=== PATIENT | male | born 1945 | race Caucasian/White ===

== ENCOUNTER 2017-05-29 15:57 | Emergency (ER) | payer OTHER ==
[2017-05-29 16:15] VITALS: BP 141/81; PULSE 54; RESP 16; TEMP 98.6; O2SAT 96
[2017-05-29] MEDS ORDERED: KETOROLAC 30 MG/1 ML SDV IM ONE (16:20)
[2017-05-29] MEDS ORDERED: DEXAMETHASONE 4 MG/ML VIAL PO ONE (16:20)
--- NOTE | 2017-05-29 16:26 | EDPHY ---
H & P Time Seen by Provider: 05/29/17 16:06 HPI/ROS: HPI Sore throat. 72-year-old male by private vehicle. He complains of a sore throat for the last 2-3 days. Worse today. Describes it as like having glass in his throat. Sharp, with swallowing. He is able to swallow liquids however without difficulty. No fever. Denies any voice changes. No stridor difficulty breathing. He has had an associated dry cough with nasal congestion as well. ROS: Constitutional: No fever, no chills. No weakness. Eyes: No discharge. No changes in vision. ENT: As above. Respiratory: As above. No shortness of breath. Cardiac: No chest pain, no palpitations. Gastrointestinal: No abdominal pain, no vomiting, no diarrhea. Musculoskeletal: No back pain. No neck pain. No myalgias or arthralgias. Skin: No rashes. Neurological: No headache. No focal weakness or altered sensation. Past medical history: Psychiatric. Social history: Nonsmoker. Here by himself. Denies alcohol. Physical Exam: General Appearance: Alert, no distress. This patient is responding to questions appropriately and in full sentences. This patient appears well- hydrated and well-nourished. Eyes: Pupils equal and round no pallor or injection. No lid edema, erythema or injection. ENT, Mouth: Mucous membranes are moist. The pharyngeal tissues are unremarkable except for some mild diffuse erythema. No edema or swelling. No asymmetry suggestive of abscess. No exudates. No stridor on auscultation of his neck. No voice changes. No cervical or submandibular lymphadenopathy. Respiratory: There are no retractions, lungs are clear to auscultation with good air movement bilaterally. Cardiovascular: Regular rate and rhythm. No murmur. Neurological: Motor sensory function is grossly intact. Cranial nerves are normal. Gait is normal. Skin: Warm and dry, no rashes. Musculoskeletal: Neck is supple and nontender. No pain on flexion of his neck. Extremities are symmetrical. All joints range without pain or impingement. Psychiatric: No agitation. No depression. Database: Rapid strep-negative. EKG: Imaging: Procedures: Emergency department course: Vital signs reviewed and are unremarkable. He is afebrile. He has no contraindications to NSAIDs. No history of renal dysfunction. I reviewed his laboratory work from the past and he has normal creatinines. He has no history of peptic ulcer disease. He was given intramuscular Toradol and oral Decadron for anti-inflammatory effects and pain control. Rapid strep swab sent. 4:35 p.m., patient re-evaluated. Resting comfortably at this time. Results of rapid strep discussed with him. He feels comfortable going home and I feel he is safe for discharge. He states he is feeling better after above medications. Plan will be to start him on high-dose ibuprofen for 2 days tomorrow morning. I will also prescribe him a short course of Vicodin to be taken as needed for throat pain. He is to follow up with his primary care physician in 1-2 days for re-evaluation. Return to emergency department precautions were thoroughly reviewed with him. All of his questions were answered. He was discharged in good condition. Differential Diagnosis: The differential diagnosis on this patient includes but is not limited to viral pharyngitis, upper respiratory infection. Streptococcal pharyngitis, peritonsillar abscess, retropharyngeal abscess, tracheitis, epiglottitis unlikely. This represents a partial list of diagnoses considered. These considerations are based on history, physical exam, past history, reassessment and diagnostic testing. Smoking Status: Never smoked Constitutional: Initial Vital Signs Temperature (C) 37.0 C 05/29/17 16:13 Heart Rate 54 L 05/29/17 16:13 Respiratory Rate 16 05/29/17 16:13 Blood Pressure 141/81 H 05/29/17 16:13 O2 Sat (%) 96 05/29/17 16:13 O2 Delivery Mode Room Air Allergies/Adverse Reactions: No Known Allergies Allergy (Unverified 07/27/11 09:08) Home Medications: Medication Instructions Recorded busPIRone 05/29/17 traZODone 05/29/17 Medical Decision Making - Data Points Laboratory Results: 05/29/17 05/29/17 Unknown 16:15 Group A Strep Screen NEGATIVE (NEGATIVE) Group A Strep DNA Pending Medications Given: Discontinued Medications Dexamethasone (Decadron Injection) 12 mg PO EDNOW ONE Stop: 05/29/17 16:21 Last Admin: 05/29/17 16:28 Dose: 12 mg Ketorolac Tromethamine (Toradol) 60 mg IM EDNOW ONE Stop: 05/29/17 16:21 Last Admin: 05/29/17 16:28 Dose: 60 mg Departure - Departure Disposition: Home, Routine, Self-Care Clinical Impression: Pharyngitis, Upper respiratory infection Condition: Good Instructions: Pharyngitis (ED), Upper Respiratory Infection (ED) Additional Instructions: Read and follow provided instructions. Follow-up with your primary care physician in 1-2 days for re-evaluation. Ibuprofen dosin mg every 6 hours with meals for the next 2-3 days only. Take only as needed for pain. You can start taking this medication tomorrow morning. Latonia/Percocet dosin-2 every 4-6 hours for [address] not drive on this medication. Take only as needed for pain and to help you sleep for the next 2- 3 days. Keep well hydrated, drink lots of fluids, get lots of rest. Return to the emergency department for worsening sore throat, high fever, difficulty swallowing, difficulty breathing, voice changes, stridor or other serious concerns.
[2017-05-29] MEDS ORDERED: HYDROCOD/APAP 5/325 PREPACK#6 BTL TAKEHOME ONE (16:29)
== END 2017-05-29 16:38 | disposition home or self-care (01) ==
LOC: CED 15:57
DX: J02.9 Acute pharyngitis, unspecified (principal); J06.9 Acute upper respiratory infection, unspecified
CPT/HCPCS: 96372; 99284; J1100; J1885; 87880-PO

== ENCOUNTER 2018-12-05 14:16 | Inpatient (IN) | payer OTHER ==
--- NOTE | 2018-12-05 14:53 | EDPHY ---
H & P Time Seen by Provider: 12/05/18 14:51 HPI/ROS: Chief complaint. Postop infection HPI. Patient is a 73-year-old male presents emergency department with redness pain and drainage from his left foot. Patient had bunion surgery November 14. His wound dehisced. 1 week ago it became red and swollen. He was started on Augmentin 5 days ago and has been compliant with his medication. Despite antibiotics it has gotten worse with increased redness swelling and some bleeding. He denies fever. Apparently sometime after his surgery the incision dehisced. Patient has no other complaints. Patient was sent to the emergency department by his orthopedist for worsening foot infection ROS 10 systems were reviewed and negative with the exception of the elements mentioned in the history of present illness Past Medical/Surgical History: Depression, knee replacement, hip replacement, bunionectomy Social History: , nonsmoker, no alcohol Smoking Status: Never smoked Physical Exam: General Appearance: Alert well-developed male mild distress vital signs are stable Eyes: Pupils equal and round no pallor or injection. ENT, Mouth: Mucous membranes are moist. Respiratory: There are no retractions, lungs are clear to auscultation. Cardiovascular: Regular rate and rhythm. Gastrointestinal: Abdomen is soft and nontender, no masses, bowel sounds normal. Neurological: Awake and alert, sensory and motor exams grossly normal. Skin: Warm and dry, no rashes. Musculoskeletal: Neck is supple nontender. Extremities symmetrical, full range of motion. Left foot has a 10 cm open wound along the medial aspect of the great toe and foot. Surrounding erythema and swelling. Foul smelling. Yellowish drainage present. No lymphangitis. Wound does not appear to go down to the bone. Psychiatric: Patient is oriented X 3, there is no agitation. Constitutional: Initial Vital Signs Temperature (C) 36.7 C 12/05/18 14:31 Heart Rate 70 12/05/18 14:31 Respiratory Rate 16 12/05/18 14:31 Blood Pressure 122/69 H 12/05/18 14:31 O2 Sat (%) 95 12/05/18 14:31 O2 Delivery Mode Room Air Allergies/Adverse Reactions: No Known Allergies Allergy (Verified 12/05/18 14:35) Home Medications: Medication Instructions Recorded traZODone [traZODONE 50MG (*)] 50 mg PO HS 05/29/17 FLUoxetine [Prozac 20 MG (*)] 20 mg PO DAILY 12/05/18 Medical Decision Making - Diagnostics Imaging Results: Foot x-ray interpreted by me shows hardware appears to be intact. No obvious evidence of osteomyelitis Procedures: IV normal saline. Vancomycin IV after wound culture ED Course/Re-evaluation: I consulted discussed the case with Dr. Potts who notes that the patient has been on Augmentin. He has concern for worsening infection despite oral antibiotics Re-evaluation 3:45 p.m.. Patient and I discussed laboratory evaluation, treatment plan including recommendation for admission. He expresses understanding and agreement I consulted discussed case with Dr. Nagy, hospitalist, who agrees to the admission Differential Diagnosis: Failed outpatient therapy of 5 days of Augmentin with worsening foot infection postoperatively. Currently no evidence for osteomyelitis - Data Points Laboratory Results: Laboratory Results 12/05/18 15:08 12/05/18 15:08 12/05/18 12/05/18 15:08 15:08 WBC 7.95 10^3/uL 10^3/uL (3.80-9.50) RBC 4.59 10^6/uL 10^6/uL (4.40-6.38) Hgb 13.7 g/dL g/dL (13.7-17.5) Hct 40.3 % % (40.0-51.0) MCV 87.8 fL fL (81.5-99.8) MCH 29.8 pg pg (27.9-34.1) MCHC 34.0 g/dL g/dL (32.4-36.7) RDW 13.8 % % (11.5-15.2) Plt Count 369 10^3/uL 10^3/uL (150-400) MPV 9.6 fL fL (8.7-11.7) Neut % (Auto) 62.3 % % (39.3-74.2) Lymph % (Auto) 26.4 % % (15.0-45.0) Canadian % (Auto) 8.9 % % (4.5-13.0) Eos % (Auto) 1.5 % % (0.6-7.6) Baso % (Auto) 0.8 % % (0.3-1.7) Nucleat RBC Rel Count 0.0 % % (0.0-0.2) Absolute Neuts (auto) 4.95 10^3/uL 10^3/uL (1.70-6.50) Absolute Lymphs (auto) 2.10 10^3/uL 10^3/uL (1.00-3.00) Absolute Monos (auto) 0.71 10^3/uL 10^3/uL (0.30-0.80) Absolute Eos (auto) 0.12 10^3/uL 10^3/uL (0.03-0.40) Absolute Basos (auto) 0.06 10^3/uL 10^3/uL (0.02-0.10) Absolute Nucleated RBC 0.00 10^3/uL 10^3/uL (0-0.01) Immature Gran % 0.1 % % (0.0-1.1) Immature Gran # 0.01 10^3/uL 10^3/uL (0.00-0.10) Sodium 135 mEq/L mEq/L (135-145) Potassium 4.0 mEq/L mEq/L (3.5-5.2) Chloride 103 mEq/L mEq/L (97-110) Carbon Dioxide 24 mEq/l mEq/l (22-31) Anion Gap 8 mEq/L mEq/L (6-14) BUN 28 mg/dL H mg/dL (7-23) Creatinine 0.9 mg/dL mg/dL (0.7-1.3) Estimated GFR > 60 Glucose 86 mg/dL mg/dL (70-100) Calcium 9.4 mg/dL mg/dL (8.5-10.4) Medications Given: Discontinued Medications Vancomycin/Sodium Chloride (Vancomycin 1 Gm (Premix)) 250 mls @ 250 mls/hr IV EDNOW ONE PRN Reason: Protocol Stop: 12/05/18 16:03 Last Admin: 12/05/18 15:29 Dose: 250 mls Departure - Departure Disposition: [facility] Inpatient Acute Clinical Impression: Cellulitis Qualifiers: Site of cellulitis: extremity Site of cellulitis of extremity: lower extremity Laterality: right Qualified Code(s): L03.115 - Cellulitis of right lower limb Condition: Fair
[2018-12-05] MEDS ORDERED: VANCOMYCIN HCL/NORMAL SALINE 250 ML IV ONE (15:04)
[2018-12-05 15:27] LABS: PLATELET COUNT 369 10^3/uL (150-400)
[2018-12-05] MEDS ORDERED: ONDANSETRON DISINTEGRATING 4 MG TAB PO PRN (16:26)
[2018-12-05] MEDS ORDERED: oxyCODONE IR 5 MG TAB PO PRN (16:26)
[2018-12-05] MEDS ORDERED: ACETAMINOPHEN 325 MG TAB PO PRN (16:26)
[2018-12-05] MEDS ORDERED: ONDANSETRON 4 MG/2 ML VIAL IVP PRN (16:26)
[2018-12-05] MEDS ORDERED: NS 1,000 ML IV SCH (16:30)
--- NOTE | 2018-12-05 17:04 | GHP ---
[f rep st] HISTORY AND PHYSICAL DATE OF ADMISSION: 12/05/2018 HISTORY OF PRESENT ILLNESS: The patient is a 73-year-old gentleman who has good medical health. He had a bunionectomy performed on his left foot on November 12. He tells me is a wearing a shoe . About a week ago, he saw his delivery table operator on because of redness and swelling and drainage and he was prescribed Augmentin which he took. He returns today for followup with what appeared to be a worsen ing wound and is referred here for further management. He has not had fever, chills, lymphangitic st reaking. Does not have diabetes. Does not use injection drugs. It sounds like he has been able to bear weight on this. He has not felt unwell. Notably, he does have hip and knee arthroplasties on b oth sides without pain or swelling in those areas. REVIEW OF SYSTEMS: Complete 10-point review of systems conducted. Negative except as noted in the H PI. PAST MEDICAL HISTORY: Osteoarthritis with hip and knee arthroplasties, depression, insomnia. ALLERGIES: No known drug allergies. MEDICATIONS: Home medications are trazodone and fluoxetine. SOCIAL HISTORY: No tobacco. Does drink alcohol. 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 Originall y from [place]. Lives in [place]. FAMILY HISTORY: Sister of lung cancer. She was a smoker. Mother of breast cancer. PHYSICAL EXAMINATION: VITAL SIGNS: Temp 36.7, blood pressure 122/70, pulse 70, breathing 16 times a minute, 95% on room. GENERAL: In no acute distress. HEENT: Sclerae anicteric. Oropharynx clear. Mucous membranes moist. NECK: Supple. No lymphadenopathy or JVD. LUNGS: Clear to auscultation bilaterally. HEART: S1, S2. ABDOMEN: Soft, nontender, nondistended. EXTREMITIES: The lower extr emities are without edema. On the left leg, there is a bunion scar that is on the medial aspect of h is foot that is about 4 inches long. It is approximated closed, but there is purulence and erythema. It is warm. There is no lymphangitic streaking. There is trace edema in his medley. SKIN: Otherwi se without rash. NEUROLOGIC: Exam is nonfocal. LABORATORY DATA: Sodium 135, potassium 4.0, chloride 103, bicarb 24, BUN 28, creatinine 0.9, glucose 86. White count 8, hematocrit 40, platelets 369,00. Film interpreted by me shows evidence of a bun ion surgery with fractures and hardware. It is difficult to ascertain if there is a periosteum react ion. There does not appear to be 1. Does not appear to be gas in the soft tissues. I await the rad iologist's read. I discussed the case with Dr. Lux Childs and Dr. Kasia Montano. ASSESSMENT AND PLAN: A 73-year-old gentleman postoperative wound infection. 1. Postoperative wound infection. This is certainly present. Will start vancomycin. It is not mone ar that he needs gram-negative coverage in the absence of diabetes. Glucose 86. No history of diabe javier. I have drawn blood cultures. 2. History of hip and knee arthroplasties. 3. Infection. Soft tissue infection in these patients is always concerning. I do not believe the p atient is bacteremic at this point. We will follow. As I have said, blood cultures have been drawn. 4. Depression. Continue fluoxetine. 5. Prophylaxis: Start low-molecular weight heparin. DISPOSITION: Inpatient status. /[id number]/MODL
--- NOTE | 2018-12-05 18:24 | GCON ---
[f rep st] CONSULTATION INFECTIOUS DISEASE CONSULTATION DATE OF CONSULTATION: 12/05/2018 REFERRING PHYSICIAN: Getachew Nagy MD REASON FOR CONSULTATION: Postoperative infection of left foot. HISTORY OF PRESENT ILLNESS: A 73-year-old male with minimal medical problems other than osteoarthritis of multiple joints, most recently underwent left knee replacement April 06, 2018, who underwent surgery of his left foot on November 13. Patient did well postoperatively until approximately 1 week ago, when he presented to his chief design engineer complaining of increasing drainage from his wound. Stitches were removed and his wound dehisced. Patient was prescribed empiric Augmentin, which he has been on the last 5 days. He called back today because he had increasing redness compared to last week and was concerned. He was seen by chief design engineer, who recommended ER evaluation. In the ER, patient was noted to have an erythematous swollen left foot that was foul-smelling. X-ray was performed which showed a fracture of the 1st metatarsal proximal to the osteotomy site. No gas in the soft tissues but some soft tissue swelling. No obvious bony changes consistent with osteomyelitis. Labs were unremarkable with a normal white count and patient was afebrile. Patient states compliance with Augmentin and states that he has followed postoperative instructions following his bunionectomy, although admits that he may be a bit more active than he is allowed. He denies any trauma or submerging his foot in water. He denies any history of MRSA and other than Augmentin as mentioned above, has not recently been on antibiotics. Further, he denies ever having skin infection in the past. Travel to [place] prior to operation in September 2018. REVIEW OF SYSTEMS: A complete 10-point review of systems was performed and is negative except as mentioned in the HPI. Pertinent negatives include no fevers , chills, night sweats, changes in appetite. PAST MEDICAL AND SURGICAL HISTORY: Includes BPH, genital herpes, gout, hyperlipidemia, osteoarthritis, and Paget's disease of the bone. Surgeries include appendectomy, bilateral hip replacements and knee replacements, rotator cuff surgery. ALLERGIES: NKDA. MEDICATIONS: Prozac 20 mg daily, and he was on Augmentin 875 mg twice daily, and trazodone 50 mg p.o. at bedtime. He was given 1 dose of vancomycin in the emergency room. SOCIAL HISTORY: Alcohol daily. Remote tobacco. 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 He is . FAMILY HISTORY: Positive for breast cancer, lung cancer, CHF, coronary artery disease, and hypertension. PHYSICAL EXAM: VITAL SIGNS: Blood pressure 125/78, heart rate 53, respiratory rate 16, saturation 96% on room air. GENERAL: This is a pleasant, nontoxic male sitting up in bed. No acute distress with fluent speech. HEENT: Pupils are reactive bilaterally. No conjunctival abnormalities. Mouth: Moist mucous membranes. Excellent dentition. CARDIOVASCULAR: Regular rate. No murmurs. CHEST: Clear to auscultation bilaterally. He was breathing easy. ABDOMEN: Soft, nontender. Bowel sounds were present. NEUROLOGICAL: He was alert and oriented x4. Moving all 4 extremities equally. Cranial nerves were grossly intact. SKIN: No rashes other than what we described on extremity exam. EXTREMITIES: He has 2+ pulses bilaterally. His left foot has a 10 cm scar along the medial aspect of his foot that has dehisced with a small amount of drainage, surrounding erythema, and warmth. He has about 2+ edema on the left foot. No fluctuance or crepitus was noted. No erythema tracking up the leg or medial thigh. PSYCHIATRIC: Alert and oriented x4, cooperative. LABORATORY: INR 1. Creatinine 0.9. White count 7.9, hematocrit 40, platelets of 369, 62% neutrophils, 26% lymphocytes. IMAGING: As per HPI. ASSESSMENT: Cellulitis of the left lower extremity status post bunionectomy with wound dehiscence. Imaging shows a fracture in an unexpected location, although patient reports that he had a newer bunion procedure per his surgeon's report, so not clear whether this fracture may be related to surgery. Interestingly, patient has minimal pain, normal white count, and no systemic symptoms. Minimal purulence from the wound. Expected pathogens postoperatively include staph and strep, but with foot infections can sometimes expect gram-negative rods. PLAN: 1. Due to lack of purulence and no history of MRSA as well as lack of antibiotic exposure, I think it is reasonable to treat for staph and strep with Ancef. 2. Follow wound culture. 3. Follow blood cultures, although doubt these will be positive as no systemic signs of infection. 4. Try to assess what the fracture is related to seen on plain films. At this time, reviewed with radiology. Do not think that MRI will help in sorting out process at this point, but we will continue to assess on a daily basis as patient still could be at risk for deeper-seated infection such as abscess or osteomyelitis. 5. Risks and benefits of antibiotic therapy were discussed with the patient at the bedside. Duration and modality of antibiotics yet to be determined based on clinical course. Greater than 50 minutes spent on this patients care, greater than 50% of time spent counseling, educating, and coordinating care regarding the above mentioned plan. Thank you for this consultation. We will continue the see the patient on a daily basis. /[id number]/MODL MTDD
--- NOTE | 2018-12-05 19:19 | PDMN ---
Medical Necessity Medical necessity: Pt meets IP criteria per & [facility] Wound & Skin Management; est los > 2mn for eval/tx of worsening post op foot infection w/ failed outpatient abx; admit for further monitoring, ID/Wound Care consults & IV abx; per H&P & order 12/05/18
[2018-12-05] MEDS: traZODone 50 MG TAB PO SCH (21:53)
[2018-12-05] MEDS: ceFAZolin 2 GM/DEXTROSE 100 ML IV SCH (21:54)
[2018-12-06] MEDS ORDERED: VANCOMYCIN HCL/NORMAL SALINE 250 ML IV SCH (03:00)
[2018-12-06] MEDS: ceFAZolin 2 GM/DEXTROSE 100 ML IV SCH ×3 (05:07→22:48)
[2018-12-06 05:18] LABS: PLATELET COUNT 310 10^3/uL (150-400)
[2018-12-06] MEDS: ENOXAPARIN 40 MG/0.4 ML SYR SC SCH (08:37)
[2018-12-06] MEDS: FLUoxetine 20 MG CAP PO SCH (08:38)
--- NOTE | 2018-12-06 11:29 | PCMIDPN ---
Assessment/Plan: Assessment: 73-year-old man with postsurgical infection of the left medial foot. No systemic signs or symptoms of uncontrolled infection but there are local signs of inflammation. 1. Surgical site infection although left medial foot; stable 2. Status post bunionectomy 11/13/2018 underlying 1. 3. History of gout Plan: 1. Continue cefazolin 2. Will touch base with his foot surgeon about possible operative management 3. Reviewed in detail potential side effects of beta-lactam antibiotics to include: allergy, rash, nausea, antibiotic-associated diarrhea, Clostridioides difficile colitis. Wayne Jacobs MD Infectious Diseases 12/06/18 11:30 Subjective: No fever or chills in the past 24-hours. Tolerating oral diet with solids and liquids. No diarrhea, nausea, or other GI symptoms. No rash. Appetite improving. Ambulating without difficulty. Improved since admission but not back to baseline health. Objective: Vital Signs Temp Pulse Resp BP Pulse Ox 36.6 C 54 L 16 133/73 H 96 12/06/18 08:00 12/06/18 08:00 12/06/18 08:00 12/06/18 08:00 12/06/18 08:00 Laboratory Results 12/06/18 04:54 12/06/18 04:54 12/05/18 12/06/18 12/07/18 05:59 05:59 05:59 Intake Total 1150 Balance 1150 ESR 15 MM/HR (0-20) 12/05/18 15:08 Medications Generic Name Dose Route Start Last Admin Trade Name Freq PRN Reason Stop Dose Admin Cefazolin Sodium/Dextrose 100 mls @ 200 mls/hr 12/05/18 22:00 12/06/18 05:07 Ancef IV 01/04/19 21:59 100 mls Q8HRS [facility] Protocol Microbiology 12/05/18 15:00 Foot - Swab Gram Stain - Final Laboratory Tests 12/05/18 12/05/18 12/06/18 15:08 15:08 04:54 WBC 7.95 8.36 Hgb 13.7 12.7 L Plt Count 369 310 Creatinine 0.9 12/06/18 04:54 WBC Hgb Plt Count Creatinine 1.0 Laboratory Tests 12/05/18 15:08 ESR 15 - Physical Exam General Appearance: no apparent distress, non-toxic EENT: No scleral icterus Respiratory: No respiratory distress, No accessory muscle use Neck: full range of motion, supple Extremities: other (Left lower extremity great toe with open skin linearly extending from distal to the MTP joint proximally to the mid foot; wound base with yellow slough, surrounding erythema without induration or fluctuance areas) Neuro/Psych: alert, normal mood/affect, oriented x 3, No confused ICD10 Worksheet Patient Problems: Problems Problem Status Onset Cellulitis Acute
--- NOTE | 2018-12-06 11:39 | ASMTCMCOM ---
CM Note CM Note Notes: Pt has post op foot infection, he had bunion surgery 11/14/18. No therapies ordered, pt is able to bear weight on foot. ID and Wound care consulting. Blood cultures pending. CM to follow for d/c planning. Date Signed: 12/06/2018 11:39 AM Electronically Signed By:ANUJ Young
--- NOTE | 2018-12-06 13:59 | HOSPPROG ---
Hospitalist Progress Note Assessment/Plan: 73 year old male with left foot infection. Left foot infection- post op foot infection, from bunionectomy on 11/13/18. Started on vancomycin initially. ID consulted, and patient transitioned over to ancef. -cont ancef -monitor cultures (NGTD) -ID graciously assisting Normocytic anemia- no evidence of bleeding. monitor H/H for now Insomnia- on trazodone. Depression- cont prozac PPX- SCDs and lovenox FLuids- PO Nutrition- regular Cor- Full Dispo- inpatient Subjective: left foot achy, but otherwise no complaints. Objective: Vital Signs Temp Pulse Resp BP Pulse Ox 36.9 C 58 L 16 138/74 H 95 12/06/18 11:34 12/06/18 11:34 12/06/18 11:34 12/06/18 11:34 12/06/18 11:34 Laboratory Results 12/06/18 04:54 12/06/18 04:54 12/05/18 12/06/18 12/07/18 05:59 05:59 05:59 Intake Total 1150 Output Total 250 Balance 1150 -250 - Physical Exam Constitutional: no apparent distress, appears nourished, not in pain Eyes: PERRL, anicteric sclera, EOMI Ears, Nose, Mouth, Throat: moist mucous membranes, hearing normal, ears appear normal, no oral mucosal ulcers Cardiovascular: regular rate and rhythym, no murmur, rub, or gallop Respiratory: no respiratory distress, no rales or rhonchi, clear to auscultation Gastrointestinal: normoactive bowel sounds, soft, non-tender abdomen, no palpable masses Genitourinary: no bladder fullness, no bladder tenderness, no renal bruits Skin: other (left foot with erythema, swelling, and yellowish discharge to ball of foot. ) Musculoskeletal: full muscle strength, no muscle tenderness, normal joint ROM Neurologic: AAOx3, sensation intact bilaterally Psychiatric: interacting appropriately, not anxious, not encephalopathic, thought process linear Lymph, Heme, Immunologic: no cervical LAD, no supraclavicular LAD ICD10 Worksheet Patient Problems: Problems Problem Status Onset Cellulitis Acute
--- NOTE | 2018-12-06 15:17 | WOCRNPDOC ---
WOCRN Advanced Assessment Note - Skin Integrity Problem, Advanced Assess Left Medial Foot Dressing Type: Kerlix, Telfa Dressing Description: Clean/Dry, Intact Exudate Amount: Scant Exudate Color: Yellow, Brown Exudate Characteristic(s): Serosanguinous Integumentary Issue Intervention: Dressing Changed, Silver Gel Applied Erna Wound Tissue: Erythema, Swollen, Erythema Marked by Wound RN, Calloused ( plantar surface) Erna Wound Swelling: Moderate Wound Bed Color: Brown, Yellow Wound Bed Constitution: Granulation Tissue (10%), Mixed Loose & Adhered Slough/ Eschar (90%) Wound Edges: Epithelizing, Attached, Irregular Site Measurement - Head-to-Toe Length X Width X Depth (cm): 5.3x2x0.3 Skin Integrity Problem Comment: Per patient account has been more active than instructed to post surgically and changed dressings every other day rather than daily (as instructed by manager primary) though continued to follow up with manager primary. Wound bed cleaned with ns and gauze. Loose slough mechanically debrided. Some dry peeling calloused skin on the plantar side of the erna wound skin removed mechanically. Silvasorb applied to wound bed, Mepliex foam dressing to cover and wrapped with sukumar. IWONA Turner and Gabby IZAGUIRRE in room for care. Attempted to discuss plan with manager primary. Will reach out again tomorrow. Wound care will follow.
[2018-12-06] MEDS: traZODone 50 MG TAB PO SCH (22:48)
[2018-12-07] MEDS: ceFAZolin 2 GM/DEXTROSE 100 ML IV SCH (05:54)
[2018-12-07 07:37] VITALS: BP 149/72
--- NOTE | 2018-12-07 08:59 | PCMIDPN ---
Assessment/Plan: # L foot post op infection with wound dehiscence of bunion surgery incision. Still w mild swelling, but erythema 80% improved. PsA on wound cx colonizer as significant improvement in foot without targeted therapy. No systemic sx of infection at admit or now. --dc on 1 more week Keflex 500mg PO QID --follow up in ID clinic next Tuesday --continue to elevate LLE as much as possible Care coordinated with Dr. Potts Subjective: patient feeling well, no c/o denies side effects to antibiotics Objective: Vital Signs Temp Pulse Resp BP Pulse Ox 36.6 C 52 L 14 149/72 H 94 12/07/18 07:36 12/07/18 07:36 12/07/18 07:36 12/07/18 07:36 12/07/18 07:36 Laboratory Results 12/06/18 04:54 12/06/18 04:54 12/06/18 12/07/18 12/08/18 05:59 05:59 05:59 Intake Total 1150 275 Output Total 450 Balance 1150 -450 275 ESR 15 MM/HR (0-20) 12/05/18 15:08 - Physical Exam General Appearance: alert, no apparent distress EENT: No scleral icterus Respiratory: lungs clear, No accessory muscle use Cardiac/Chest: regular rate, rhythm, No systolic murmur Extremities: other (periwound erythema, necrotic material in base of incision, erythema on dorsum of foot almost resolved. Less swelling, R great toe still with faint erythema, no tenderness) Peripheral Pulses: 1+: dorsalis-pedis (R), dorsalis-pedis (L) Skin: No rash Neuro/Psych: alert, normal mood/affect, oriented x 3 - Time Spent With Patient Time Spent with Patient: greater than 35 minutes Time Spent with Patient: Greater than 35 minutes spent on this patients care, greater than 50% of time spent counseling, educating, and coordinating care regarding the above mentioned plan. ICD10 Worksheet Patient Problems: Problems Problem Status Onset Cellulitis Acute
--- NOTE | 2018-12-07 09:57 | WOCRNPDOC ---
WOCRN Advanced Assessment Note - Skin Integrity Problem, Advanced Assess Left Foot Dressing Type: Open to Air (removed by MD just prior to visit) Integumentary Issue Intervention: Dressing Applied Erna Wound Tissue: Erythema (improved from yesterday), Dry, Calloused Erna Wound Swelling: Moderate Wound Bed Color: [place], Red, Yellow Wound Bed Constitution: Granulation Tissue (20%), Adhered Slough (80%) Wound Edges: Epithelizing, Attached, Irregular Site Measurement - Head-to-Toe Length X Width X Depth (cm): 5.4x2x0.4 Skin Integrity Problem Comment: Wound seen and sharp debrided by ID doc within the hour per patient. Wound cleaned with ns and elie. Iodosorb cream applied and covered by Mepilex non border foam dressing. Wrapped with sukumar. Patietn denies discomfort and looking forward to discharge. Reminded patient to keep elevated as much as possible.
[2018-12-07] MEDS: FLUoxetine 20 MG CAP PO SCH (10:20)
[2018-12-07] MEDS: ENOXAPARIN 40 MG/0.4 ML SYR SC SCH (10:20)
[2018-12-07] MEDS ORDERED: PIPERACILLIN/TAZO 3.375 GM/DEX 50 ML IV SCH (12:00)
[2018-12-07] MEDS ORDERED: CEPHALEXIN 500 MG CAP PO SCH (12:00)
--- NOTE | 2018-12-07 15:42 | PDDCSUM ---
Discharge Summary Discharge Summary: Discharge diagnosis Postop foot infection Arthritis Depression Insomnia Patient was admitted for increased swelling and pain in his left foot along with drainage after a bunionectomy. Wound and blood cultures were obtained and he was started on vancomycin. Infectious Disease was consulted who transition the patient over to [facility]. Clinically he responded well to the and self and so this was continued. His blood cultures remained negative throughout his hospital course. His wound culture grew out Pseudomonas aeruginosa. This was thought by Infectious Disease to not be the organism responsible for infection as he had responded so well to the Ancef. His case was discussed with his business integration analyst who agreed to see the patient for follow-up as he might need further debridement of his wound. He was discharged to complete a course of antibiotics with Keflex 500 mg 4 times daily until December 12. On the day of discharge he was feeling well able to ambulate and tolerate p. O. Without issue. He was discharged home to follow up with his business integration analyst as well as his primary care physician and Infectious Disease in clinic. I spent less than 30 min on the discharge of this patient
== END 2018-12-07 13:26 | disposition home or self-care (01) | DRG 863 ==
LOC: F3N 17:14
PROVIDERS: ADMIT Internal Medicine; ATTEND Internal Medicine
DX: T81.49XA Infection following a procedure, other surgical site, initial encounter (principal); F32.9 Major depressive disorder, single episode, unspecified; G47.00 Insomnia, unspecified; B96.5 Pseudomonas (aeruginosa) (mallei) (pseudomallei) as the cause of diseases classified elsewhere; N40.0 Benign prostatic hyperplasia without lower urinary tract symptoms; A60.02 Herpesviral infection of other male genital organs; M10.9 Gout, unspecified; E78.5 Hyperlipidemia, unspecified; M19.90 Unspecified osteoarthritis, unspecified site; Z96.643 Presence of artificial hip joint, bilateral; Z96.653 Presence of artificial knee joint, bilateral
CPT/HCPCS: 96365; J0690; J1650; J2543; J3370

== ENCOUNTER → 2019-03-06 | Outpatient (CLI) | payer OTHER | LOC: FIMAGING 09:47 ==